=== PATIENT | female | born 1980 | race Caucasian/White ===

== ENCOUNTER 2020-04-28 07:22 | Day surgery (SDC) | payer BC ==
[2020-04-28 08:00] VITALS: BP 122/61; TEMP 98.2; BMI 34.3
[2020-04-28] MEDS ORDERED: hydrALAZINE 20 MG/ML VIAL SLOW IVP PRN (08:27)
[2020-04-28 09:28] LABS: Bacteria/HPF None Seen HPF (None Seen); Bilirubin Negative (Negative); Blood, Urine Negative (Negative); Clarity Clear (Clear); Glucose, Urine (Dipstick) Normal (Negative); Ketone, Urine Negative (Negative); Leukocyte Negative Leu/uL (Negative); Nitrite Negative (Negative); Protein, Urine (Dipstick) 10 mg/dL (Neg-Trace); RBC/HPF 0-3 HPF (0-3); Specific Gravity, Urine 1.016 (1.002-1.036); Squamous Epithelial 0-3 HPF (0-3); Urobilinogen Normal mg/dL (Less than 2); WBC/HPF 0-3 HPF (0-3); pH, Urine 6.5 (5.0-9.0)
[2020-04-28 09:31] LABS: Urine Culture Reflex No No
--- NOTE | 2020-04-28 09:37 | ULT ---
Exam: OB ultrasound HISTORY: Multiple gestations. Patient is 31 weeks . Contractions. COMPARISON: None. TECHNIQUE: Sagittal and transverse imaging of the gravid uterus is performed. FINDINGS: BABY A: Presentation: Vertex heart tones: 131 bpm biometry: BPD: 7.64 cm, 30 weeks 5 days Head circumference: 26.91 cm, 29 weeks 2 days Abdominal circumference: 26.34 cm, 30 weeks 3 days Femur length: 5.67 cm, 29 weeks 5 days Average age by sonography is 30 weeks 0 days. Estimated weight is 1519 g +/- 225 g. Largest pocket of amniotic fluid: 4.5 cm BABY B: Presentation: Breech heart tones: 133 bpm biometry : BPD: 7.70 cm, 30 weeks 6 days Head circumference: 28.28 cm, 31 weeks 0 days Abdominal circumference: 27.18 cm, 31 weeks 2 days Femur length: 5.70 cm, 26 weeks 6 days Estimated weight: 1639 g +/- 43 g Cervix: Cervical length is between 4.4 and 4.6 cm. Largest pocket of amniotic fluid: 6.9 cm Placental location: Posterior. IMPRESSION: 1. Dichorionic, diamniotic . 2. heart tones of baby A 131 bpm, heart tones baby of B 133 bpm 3. Estimated weight of baby A 1519 g, estimated weight of baby B 1639 g. 4. Cervical length is between 4.4 and 4.6 cm. Transcribed Date/Time: 04/28/2020 9:58 AM
--- NOTE | 2020-04-28 20:04 | ER ---
DATE OF SERVICE: 04/28/2020 TIME OF SERVICE: 10 a.m. PRESENTING COMPLAINT: Contractions at 31 weeks' gestation with twins. HISTORY OF PRESENT ILLNESS: Ms. Burgess is a 39-year-old 2, para 1, with dichorionic diamniotic twins at 31 weeks' gestation, sees Dr. Jordyn Hale at [facility]. She presents complaining of lower abdominal pain and back pain. She denies bleeding or rupture of membranes. Reports active fetus. Denies fever, chills, nausea, or vomiting. ARCHAEOLOGIST HISTORY: B positive, antibody negative. Pap negative. Rubella immune. VDRL nonreactive. Hepatitis B, GC, chlamydia negative. The patient has had prior section x1 and plans on repeat at 38 weeks' gestation. PAST MEDICAL HISTORY: Significant for hypothyroidism. PAST SURGICAL HISTORY: . ALLERGIES: DENIES. MEDICATIONS: Synthroid, vitamins. SOCIAL HISTORY: Denies tobacco, alcohol, or drug abuse. FAMILY HISTORY: Noncontributory. REVIEW OF SYSTEMS: Noncontributory. PHYSICAL EXAMINATION: VITAL SIGNS: Temperature 98.2, pulse 85, respirations 18, blood pressure 128/72. HEENT: Within normal limits. LUNGS: Clear to auscultation bilaterally. HEART: Regular rate and rhythm. BREASTS: No masses bilaterally. ABDOMEN: Soft, nontender. Fundal height 34. FHTs 150s, 140s. : Vulva without lesions. Vagina without discharge. Cervix; closed, long, and high. EXTREMITIES: Without clubbing, cyanosis, or edema. LABORATORY DATA: Fem cath UA was carried out, which was completely negative with no blood cells, wbc's, squames, bacteria, and normal pH and specific gravity. ultrasound was carried out, which revealed a vertex breech presentation. Composite gestational age at 30 weeks 0 days, and approximately the same for twin B. Estimated weight 1519, 1639, normal largest pocket both sides and cervical length of 4 to 5 cm. monitoring is carried out greater than 20 minutes. Uterine irritability was noted without significant contractions that would be consistent with actual labor. IMPRESSION: Uterine irritability without evidence of labor. No evidence of urinary tract infection. Dichorionic diamniotic with advanced maternal age. PLAN: ER precautions. Encourage p.o. hydration and rest. Keep scheduled followup on 05/[address] Hale. Job ID: [id number]
== END 2020-04-28 10:05 | disposition home or self-care (01) ==
LOC: L&D/OP 07:22
PROVIDERS: ATTEND Obstetrics & Gynecology
DX: O47.03 False labor before 37 completed weeks of gestation, third trimester (principal); O32.8XX1 Maternal care for other malpresentation of fetus, fetus 1; O32.1XX2 Maternal care for breech presentation, fetus 2; O30.043 Twin pregnancy, dichorionic/diamniotic, third trimester; O99.283 Endocrine, nutritional and metabolic diseases complicating pregnancy, third trimester; E03.9 Hypothyroidism, unspecified; O09.523 Supervision of elderly multigravida, third trimester; Z79.899 Other long term (current) drug therapy; Z3A.31 31 weeks gestation of pregnancy
CPT/HCPCS: 51701; 76810; 81001; 99282

== ENCOUNTER 2020-05-22 10:04 | Day surgery (SDC) | payer BC ==
[2020-05-22 10:44] VITALS: BMI 36.2
[2020-05-22] MEDS ORDERED: hydrALAZINE 20 MG/ML VIAL SLOW IVP PRN (11:16)
[2020-05-22] MEDS ORDERED: Acetaminophen 500 MG TAB PO SCH (11:16)
--- NOTE | 2020-05-22 11:22 | PDOC.LDHP ---
Labor and Delivery H&P Chief complaint: other (back pain) HPI: 39 y/o at 34w5d presents with low back pain and bilateral groin pain off and on since early this morning. Described as a "pulling" feeling. Has not slept well and has felt tired. Denies VB, LOF, ctx, UTI sx, or other concerns. Worse with moving around. Had COVID and flu on 05/05/20, those sx have resolved. PNC: Dr. Hale ROS neg for HEENT, cv, pulm, gi, gu, neuro, psych, skin, musculoskeletal or constitutional symptoms other than mentioned above. OB History Details: 1 prior term LTCS Current complications: none Past Medical History: hypothyroidism Current medications: pre-ezio vitamins, other (synthroid, liothyronine, fluoxitine, ASA 81mg) Previous surgical history: low tranverse CS (x1), other (breast implants) Allergies/Adverse Reactions: Allergies Allergy/AdvReac Type Severity Reaction Status Date / Time No Known Allergies Allergy Verified 05/22/20 11:18 Social history: none - Physical Exam Vital signs reviewed and normal: yes General: NAD, resting Lungs: nonlabored breathing Abdomen: other (gravid, NTTP. Back TTP of paraspinous muscles in lumbar region, reproduces pain.) Extremeties: no edema FHT: category 1 (135/140s, mod variability, + accels, no decels) [place] contractions every: none - Vaginal Exam cm dilated: 0 Effacement: 0% Station: -3 - OB Labs Blood type: B RH: positive - Assessment 39 y/o at 34w5d with no e/o PTL. Back pain likely musculoskeletal in origin, as it is reproducible on palpation of paraspinous muscles. status reassuring with reactive NST x 2. UA negative. - Plan -: D/c home with precautions. Advised to keep all appointments. Offered Flexeril, but declined due to possible drowsiness, as she has to drive home. Call Dr. Hale if back pain persists for possible muscle relaxer.
[2020-05-22 11:49] LABS: Bacteria/HPF None Seen HPF (None Seen); Bilirubin Negative (Negative); Blood, Urine Negative (Negative); Clarity Clear (Clear); Glucose, Urine (Dipstick) Normal (Negative); Ketone, Urine Negative (Negative); Leukocyte Negative Leu/uL (Negative); Nitrite Negative (Negative); Protein, Urine (Dipstick) Negative (Neg-Trace); RBC/HPF 0-3 HPF (0-3); Specific Gravity, Urine 1.008 (1.002-1.036); Urobilinogen Normal mg/dL (Less than 2); WBC/HPF 0-3 HPF (0-3); pH, Urine 7.5 (5.0-9.0)
[2020-05-22 11:55] LABS: Urine Culture Reflex No No
== END 2020-05-22 12:18 | disposition home health service (06) ==
LOC: L&D/OP 10:04
PROVIDERS: ATTEND Obstetrics & Gynecology
DX: O99.891 Other specified diseases and conditions complicating pregnancy (principal); M54.5 Low back pain; R10.31 Right lower quadrant pain; R10.32 Left lower quadrant pain; O99.283 Endocrine, nutritional and metabolic diseases complicating pregnancy, third trimester; E03.9 Hypothyroidism, unspecified; O30.043 Twin pregnancy, dichorionic/diamniotic, third trimester; O34.211 Maternal care for low transverse scar from previous cesarean delivery; O09.523 Supervision of elderly multigravida, third trimester; Z3A.34 34 weeks gestation of pregnancy; Z79.82 Long term (current) use of aspirin; Z79.899 Other long term (current) drug therapy; Z86.16 Personal history of COVID-19
CPT/HCPCS: 81001; 99283

== ENCOUNTER 2020-06-03 20:42 | Day surgery (SDC) | payer BC ==
[2020-06-03 21:14] VITALS: BMI 36.6
[2020-06-03] MEDS ORDERED: hydrALAZINE 20 MG/ML VIAL SLOW IVP PRN (21:30)
[2020-06-03] MEDS ORDERED: Ondansetron PF 4 MG/2 ML Vial IVP PRN (21:31)
[2020-06-03] MEDS ORDERED: Ondansetron PF 4 MG/2 ML Vial ONE (21:37)
[2020-06-03] MEDS ORDERED: Dextrose 5%-Lactated Ringers 1,000 ML IV SCH ×2 (21:45→23:45)
== END 2020-06-03 22:45 | disposition home or self-care (01) ==
LOC: L&D/OP 20:42
PROVIDERS: ATTEND Obstetrics & Gynecology
DX: O26.893 Other specified pregnancy related conditions, third trimester (principal); R11.0 Nausea; O30.003 Twin pregnancy, unspecified number of placenta and unspecified number of amniotic sacs, third trimester; O99.283 Endocrine, nutritional and metabolic diseases complicating pregnancy, third trimester; E03.9 Hypothyroidism, unspecified; O09.523 Supervision of elderly multigravida, third trimester; Z3A.36 36 weeks gestation of pregnancy; Z86.16 Personal history of COVID-19; Z79.82 Long term (current) use of aspirin; Z79.899 Other long term (current) drug therapy
CPT/HCPCS: 96360; 96375; 99282; J2405

== ENCOUNTER 2020-06-08 14:19 | Inpatient (IN) | payer BC ==
[2020-06-08] MEDS ORDERED: hydrALAZINE 20 MG/ML VIAL SLOW IVP PRN ×2 (15:05→17:07)
[2020-06-08] MEDS ORDERED: Ondansetron PF 4 MG/2 ML Vial IVP PRN ×2 (15:05→16:22)
[2020-06-08] MEDS ORDERED: Bicitra 30 ML UDCUP PO PRN (15:05)
[2020-06-08] MEDS ORDERED: Promethazine HCl 25 MG/ML VIAL IM PRN ×2 (15:05→16:22)
[2020-06-08] MEDS ORDERED: Famotidine/PF 20 mg/2ml Vial SLOW IVP PRN (15:05)
[2020-06-08 15:26] LABS: Mean Corpuscular Hemoglobin 29.8 pg (27.0-31.0); Mean Corpuscular Volume 90.2 fL (78.0-98.0); Mean Platelet Volume 10.6 fL (7.4-10.4); Platelet Count 157 thou/uL (130-400); Red Blood Cell (RBC) Count 4.04 mill/uL (4.20-5.40); White Blood Cell (WBC) Count 12.2 thou/uL (4.8-10.8)
[2020-06-08 15:27] VITALS: BMI 38.4
[2020-06-08 15:40] LABS: ALT (SGPT) 20 U/L (8-55); AST (SGOT) 24 U/L (5-34); Albumin 3.1 g/dL (3.5-5.0); Alkaline Phosphatase 145 U/L (40-110); Anion Gap 16 mmol/L (10-20); BUN (Urea Nitrogen) 16 mg/dL (7.0-18.7); Bilirubin, Total 0.4 mg/dL (0.2-1.2); Calc. Creatinine Clearance 176 mL/min (70-130); Calcium 8.4 mg/dL (7.8-10.44); Carbon Dioxide 17 mmol/L (22-29); Chloride 110 mmol/L (98-107); Globulin 2.4 g/dL (2.4-3.5); Glucose 62 mg/dL (70-105); Potassium 4.2 mmol/L (3.5-5.1); Protein, Total 5.5 g/dL (6.0-8.3); Sodium 139 mmol/L (136-145)
[2020-06-08] MEDS ORDERED: Morphine PF 10 MG/10 ML VIAL ONE (15:53)
[2020-06-08] MEDS ORDERED: Oxytocin 10 UNITS/ML VIAL ONE ×2 (15:53→16:53)
[2020-06-08] MEDS ORDERED: PHENYLEPHRINE-NS 100 MCG/ML 10 ML SYRINGE ONE (15:54)
[2020-06-08 15:59] LABS: HBSAg Index 0.21 S/CO (0-0.99); Hep B Surf Ag Non-Reactive S/CO (NonReactive); Syphilis Antibody Nonreactive (Nonreactive); Syphilis Antibody Index 0.03 S/CO (<1.00 Non-Reactive)
--- NOTE | 2020-06-08 16:10 | PDOC.LDHP ---
Labor and Delivery H&P Chief complaint: scheduled section HPI: 39 y/o WF at 37-38 weeks with dichorionic twins /ivf..Elevated Blood pressure at Visit today with 2+ urine protein and weight gain of 10 lbs the past 2 weeks. prior c/s. Current gestational age (weeks): 37 Dating criteria: first trimester ultrasound Grav: 2 Para: 1 Current complications: preeclampsia without severe features, di/di twins Abnormal US findings: No Current medications: pre-ezio vitamins, other (81 mg asa/d) Previous surgical history: low tranverse CS, other (breast augmentation) Allergies/Adverse Reactions: Allergies Allergy/AdvReac Type Severity Reaction Status Date / Time No Known Allergies Allergy Verified 05/22/20 11:18 Social history: none - Physical Exam Heart: RRR Lungs: CTAB Abdomen: gravid FHT: category 1 - OB Labs RH: positive Antibody Screen: negative HIV: negative RPR: negative HEPSAg: negative 1 hour GCT: negative GBS: negative Urine drug screen: negative Rubella: immune - Assessment L&D Assessment: scheduled repeat section - Plan Plan: admit to L&D, anesthesia consult for pain management (repeat c/s for mild pih. Twins.)
[2020-06-08] MEDS ORDERED: Meperidine HCl/PF 25 MG/ML VIAL SLOW IVP PRN (16:22)
[2020-06-08] MEDS ORDERED: Naloxone HCl 0.4 mg/ml Vial IVP PRN ×2 (16:22)
[2020-06-08] MEDS ORDERED: Naloxone HCl 0.4 mg/ml Vial IV PRN (16:22)
[2020-06-08] MEDS ORDERED: diphenhydrAMINE 50 MG/ML VIAL IVP PRN (16:22)
[2020-06-08] MEDS ORDERED: HYDROmorphone 2 MG/ML VIAL SLOW IVP PRN (16:22)
[2020-06-08] MEDS ORDERED: Ondansetron HCl/PF 4 MG/2 ML Vial IVP PRN (16:22)
[2020-06-08] MEDS ORDERED: Promethazine HCl 25 MG SUPP PR PRN (16:22)
[2020-06-08] MEDS ORDERED: L&D-Morphine 4 MG/ML VIAL SLOW IVP PRN (16:22)
[2020-06-08] MEDS ORDERED: Communication Order-Pharmacy FS SCH (16:30)
[2020-06-08] MEDS ORDERED: Ketorolac Tromethamine 30 MG/ML VIAL IVP SCH (16:30)
[2020-06-08] MEDS ORDERED: Adacel (T-DAP) 0.5 ML SYRINGE IM ONE (17:07)
[2020-06-08] MEDS ORDERED: Bisacodyl 10 MG SUPP PR PRN (17:07)
[2020-06-08] MEDS ORDERED: diphenhydrAMINE 25 MG CAP PO PRN (17:07)
[2020-06-08] MEDS ORDERED: Simethicone Chewable 80 MG TAB PO PRN (17:07)
[2020-06-08] MEDS ORDERED: Acetaminophen 325 MG TAB PO PRN (17:07)
[2020-06-08] MEDS ORDERED: Lanolin Ointment 7 GM TUBE TOP PRN (17:07)
[2020-06-08] MEDS ORDERED: Meperidine HCl/PF 25 MG/ML VIAL ONE (18:52)
[2020-06-08] MEDS: Misoprostol 200 MCG TAB ONE (21:12)
[2020-06-08] MEDS ORDERED: Misoprostol 200 MCG TAB PR SCH (21:30)
[2020-06-08] MEDS: Lactated Ringer's 1,000 ML IV SCH ×2 (21:43→23:30)
[2020-06-08] MEDS: Ketorolac Tromethamine 30 MG/ML VIAL IVP PRN (23:30)
--- NOTE | 2020-06-09 00:16 | OP ---
DATE OF PROCEDURE: 06/08/2020 PREOPERATIVE DIAGNOSES: 1. A 39-year-old white female, G2, P1, 37-38 weeks with dichorionic diamniotic twin gestation. 2. Prior section. 3. Mild preeclampsia. POSTOPERATIVE DIAGNOSES: 1. A 39-year-old white female, G2, P1, 37-38 weeks with dichorionic diamniotic twin gestation. 2. Prior section. 3. Mild preeclampsia. PROCEDURE PERFORMED: Repeat low-transverse section without extension. COASTAL AND ESTUARY SPECIALIST SURGEON: Radha Oliveira MD, family [facility] resident. ANESTHESIA: Spinal block. ESTIMATED BLOOD LOSS: 600 mL. COMPLICATIONS: None. COUNTS: Correct x2. ANTIBIOTICS: 2 g Ancef on-call to OR. FINDINGS: 1. Twin A vertex presentation, clear amniotic fluid noted female, Apgars 8 and 9, weight 6 pounds 1 ounce, vertex presentation. 2. Twin B female, Apgars 8 and 9, vertex presentation, weight 4 pounds 13 ounces. 3. Clear urine present in Kilgore catheter postprocedure. Normal-appearing uterus. DISPOSITION: Recovery room, stable. DESCRIPTION OF PROCEDURE: The patient previously received informed consent in regard to surgery. She was taken back to the operating room, where she received a spinal block without complications. She was then placed in the supine position, prepped and draped in usual sterile fashion. A Kilgore catheter and SCDs had been placed. At this time, a Pfannenstiel incision was made down to the previous scar site, it was carried down to the fascia. Fascia was nicked in midline. Fascial incision was extended bilaterally with use of curved Littlejohn scissors. The rectus fascia was dissected off the rectus muscle bellies superiorly and inferiorly. The rectus muscles were then divided in the midline. The peritoneal cavity was entered. A bladder blade was placed in usual fashion. A 2 cm hysterotomy incision was made in the lower uterine segment above the vesicouterine peritoneal fold. This was extended via finger fractionation, and the amniotic bag of twin A was ruptured. Clear fluid noted. The baby was delivered in the vertex presentation. Mouth and nares were bulb suctioned on the abdomen. The cord was doubly clamped and cut and the baby was handed to the pediatric team in attendance. Next, the twin B presentation was confirmed again to be vertex. The amniotic bag was ruptured. The baby was delivered in vertex presentation. Mouth and nares of twin B were bulb suctioned on the abdomen. The cord was doubly clamped and cut and then the infant was handed to the other pediatric team in attendance. The cord bloods were then taken. Each placenta was then manually extracted from the uterus and uterus was curetted of any remaining placental fragments with a dry laparotomy sponge. Hysterotomy incision was then closed in double-layer closure with #1 Monocryl in a running locking fashion. Additional [id number] stitches of 0 chromic were placed on each angle to achieve hemostasis. There was area of oozing in the serosa of the bladder, where the 2-0 chromic stitch was placed in a [id number] stitch for hemostasis. The pelvis was irrigated and suctioned. Again, hemostasis was confirmed. The rectus muscle bellies were noted to be hemostatic prior to fascial closure. The fascia was closed with 0 PDS suture x2 in a running continuous fashion. Subcutaneous tissue was noted to be hemostatic prior to skin approximation with alex. The surgery was terminated. No anesthetic or surgical complications. Job ID: [id number]
[2020-06-09] MEDS: Misoprostol 200 MCG TAB ONE (03:17)
[2020-06-09] MEDS: Docusate Calcium (SURFAK) 240 MG CAP PO SCH ×3 (03:17→21:05)
[2020-06-09] MEDS ORDERED: HYDROcodone/Acetaminophen 5/325 mg Tablet PO PRN (04:30)
[2020-06-09 05:28] LABS: Hemoglobin 10.6 g/dL (12.0-16.0); Mean Corpuscular HGB CONC 33.6 g/dL (32.0-36.0); Mean Corpuscular Hemoglobin 30.8 pg (27.0-31.0); Mean Corpuscular Volume 91.7 fL (78.0-98.0); Platelet Count 140 thou/uL (130-400); RBC Distribution Width 12.9 % (11.5-14.5); Red Blood Cell (RBC) Count 3.45 mill/uL (4.20-5.40)
[2020-06-09] MEDS: Lactated Ringer's 1,000 ML IV SCH ×3 (06:12→22:56)
--- NOTE | 2020-06-09 06:19 | PDOC.PP ---
Post Progress Note Post Day #: 1 Subjective: No concerns. babies doing well. PO intake tolerated: yes Flatus: yes Vital Signs (12 hours) Temp Pulse Resp BP Pulse Ox 06/09/20 05:00 98.9 F 73 18 131/63 98 06/09/20 00:10 99 F 68 18 137/77 97 06/08/20 23:10 98.8 F 73 18 135/73 98 06/08/20 22:10 98.7 F 72 18 154/80 H 98 Weight Weight 224 lb - Physical Examination Abdominal: + bowel sounds, no distention, appropriately TTP Extremities: negative homans (B) Result Diagrams: 06/09/20 05:07 06/08/20 15:15 Additional Labs: Post Labs Hep Bs Antigen Non-Reactive S/CO (NonReactive) 06/08/20 15:15 Blood Type B POSITIVE 06/08/20 15:15 - Assessment/Plan Post op day 0-1. Repeat c/s for twins at 37 weeks. Yri-fqefgwayc-liwdk pressures improved...routine care.
[2020-06-09] MEDS: Prenatal Vitamin 1 TAB PO SCH (08:20)
[2020-06-09] MEDS ORDERED: Sodium Chloride 0.9% 10 ML ONE (08:43)
[2020-06-09] MEDS: Ketorolac Tromethamine 30 MG/ML VIAL IVP PRN (08:45)
[2020-06-09] MEDS: HYDROcodone/Acetaminophen 5/325 mg Tablet PO PRN ×2 (15:10→19:01)
[2020-06-09] MEDS: Ibuprofen 800 MG TAB PO SCH (21:05)
[2020-06-10] MEDS: HYDROcodone/Acetaminophen 5/325 mg Tablet PO PRN (00:30)
[2020-06-10] MEDS: Ibuprofen 800 MG TAB PO SCH ×3 (05:27→21:33)
[2020-06-10] MEDS: Lactated Ringer's 1,000 ML IV SCH ×2 (06:17→15:18)
--- NOTE | 2020-06-10 06:32 | PDOC.PP ---
Post Progress Note Post Day #: 2 Subjective: Doing well. Desires to go home today. PO intake tolerated: yes Flatus: yes Ambulation: yes Vital Signs (12 hours) Temp Pulse Resp BP Pulse Ox 06/10/20 05:30 98.2 F 63 16 149/78 H 06/10/20 00:10 97.6 F 81 16 139/68 06/09/20 19:49 98.7 F 80 16 134/77 96 Weight Weight 224 lb - Physical Examination Cardiovascular: RRR Respiratory: clear to auscultation bilaterally Abdominal: no distention, appropriately TTP Extremities: negative homans (B) Skin: no rash Neurological: no gross focal deficits Psychiatric: A&Ox3, normal affect Result Diagrams: 06/09/20 05:07 06/08/20 15:15 Additional Labs: Post Labs Hep Bs Antigen Non-Reactive S/CO (NonReactive) 06/08/20 15:15 Blood Type B POSITIVE 06/08/20 15:15 (1) delivery delivered Code(s): O82 - ENCOUNTER FOR DELIVERY WITHOUT INDICATION Status: Acute - Assessment/Plan Postop Day 2...S/P CS with twins. Doing well. BPs are mildly to moderate but not enough for meds at this time. I discussed in house observation today vs home with recheck BP friday. As she has another child at home (8 yrs), we will DC home and she will have BP check on Friday and have her alex out as well.
[2020-06-10] MEDS: Prenatal Vitamin 1 TAB PO SCH (08:23)
[2020-06-10] MEDS: Docusate Calcium (SURFAK) 240 MG CAP PO SCH ×2 (08:23→21:33)
[2020-06-10] MEDS ORDERED: NIFEdipine XL 30 MG TAB PO SCH (19:15)
[2020-06-11] MEDS: Lactated Ringer's 1,000 ML IV SCH ×2 (01:58→07:28)
[2020-06-11] MEDS: Ibuprofen 800 MG TAB PO SCH (05:47)
[2020-06-11] MEDS ORDERED: NIFEdipine XL 30 MG TAB PO SCH ×2 (09:00→21:00)
[2020-06-11] MEDS: Prenatal Vitamin 1 TAB PO SCH (09:03)
[2020-06-11] MEDS: Docusate Calcium (SURFAK) 240 MG CAP PO SCH (09:04)
[2020-06-11 10:15] VITALS: BP 130/72; TEMP 98.2
[2020-06-11] MEDS: HYDROcodone/Acetaminophen 5/325 mg Tablet PO PRN (11:00)
== END 2020-06-11 13:30 | disposition home or self-care (01) | DRG 788 ==
LOC: L&D 14:19 → 3SE 22:44 → 3SW 06-09 17:35
PROVIDERS: ADMIT Obstetrics & Gynecology; ATTEND Obstetrics & Gynecology
PROC: 10D00Z1 Extraction of Products of Conception, Low, Open Approach (ICD-10-PCS; principal; 2020-06-08)
DX: O30.043 Twin pregnancy, dichorionic/diamniotic, third trimester (principal); Z3A.37 37 weeks gestation of pregnancy; Z37.2 Twins, both liveborn; Z28.21 Immunization not carried out because of patient refusal; O13.4 Gestational [pregnancy-induced] hypertension without significant proteinuria, complicating childbirth; O34.211 Maternal care for low transverse scar from previous cesarean delivery; O14.04 Mild to moderate pre-eclampsia, complicating childbirth
CPT/HCPCS: 36415; 51702; 80053; 85027; 86780; 86850; 86900; 86901; 87340; J1885; J2175; J2270